=== PATIENT | male | born 1960 | race American Indian/Alaskan Native ===

== ENCOUNTER 2020-06-03 16:55 | Emergency (ER) | payer SELFPAY ==
[2020-06-03 17:04] VITALS: BP 161/99
--- NOTE | 2020-06-03 18:19 | Event Note ---
ED Screening Note Date of service: 06/03/20 Time: 18:15 ED Screening Note: Pt presents with complaints elevated BP reading and dizziness x today states dizziness has now resolved denies CP, SOB, vision changes, confusion, slurred speech, SWANSON, or numbness/tingling/weakness in his limbs Currently taking lisinopril per pt This initial assessment/diagnostic orders/clinical plan/treatment(s) is/are subject to change based on patients health status, clinical progression and re- assessment by fellow clinical providers in the ED. Further treatment and workup at subsequent clinical providers discretion. Patient/guardian urged not to elope from the ED as their condition may be serious if not clinically assessed and managed. Initial orders include: labs
[2020-06-03 18:35] LABS: Basophils % (Auto) 0.6 % (0.0-1.8); Eosinophils # (Auto) 0.1 K/mm3 (0.0-0.4); Eosinophils % (Auto) 1.4 % (0.0-4.3); Hemoglobin 13.4 gm/dl (11.8-15.2); Lymphocytes # (Auto) 1.8 K/mm3 (1.2-5.4); Lymphocytes % (Auto) 26.9 % (13.4-35.0); Mean Corpuscular HGB Conc 34 % (32-34); Mean Corpuscular Volume 98 fl (84-94); Monocytes # (Auto) 0.3 K/mm3 (0.0-0.8); Monocytes % (Auto) 4.7 % (0.0-7.3); Platelet Count 202 K/mm3 (140-440); Red Blood Count 4.09 M/mm3 (3.65-5.03)
[2020-06-03 18:56] LABS: Albumin 4.4 g/dL (3.9-5); BUN/Creatinine Ratio 10; Blood Urea Nitrogen 7 mg/dL (9-20); Hemolysis Index 8
[2020-06-03 19:02] LABS: Alanine Aminotransferase < 5 units/L (7-56)
== END 2020-06-03 21:26 | disposition left against medical advice (07) ==
LOC: ED 16:55
DX: R03.0 Elevated blood-pressure reading, without diagnosis of hypertension (principal); Z53.21 Procedure and treatment not carried out due to patient leaving prior to being seen by health care provider
CPT/HCPCS: 36415; 80053; 84484; 85025

== ENCOUNTER 2022-07-24 14:01 | Outpatient (CLI) | payer MEDICAID ==
--- NOTE | 2022-07-24 16:07 | XRay Report ---
Lumbar spine 5 views INDICATION: Low back pain FINDINGS: Alignment appears normal. Advanced discogenic degenerative change L5-S1 with endplate marie es and facet arthropathy. No subluxation is seen. Signer Name: Oscar Warner MD Signed: 07/24/2022 4:02 PM Workstation Name: [email or web address] [id number]
--- NOTE | 2022-07-24 17:03 | XRay Report ---
CHEST 2 VIEWS INDICATION / CLINICAL INFORMATION: R63.4 ABNORMAL WEIGHT LOSS. COMPARISON: None available. FINDINGS: SUPPORT DEVICES: None. HEART / MEDIASTINUM: No significant abnormality. LUNGS / PLEURA: No significant pulmonary or pleural abnormality. No pneumothorax. ADDITIONAL FINDINGS: No significant additional findings. IMPRESSION: 1. No acute findings. Signer Name: Homero Pinedo MD Signed: 07/24/2022 4:59 PM Workstation Name: [email or web address]
--- NOTE | 2022-07-24 17:12 | XRay Report ---
SACRUM AND COCCYX 3 VIEW(S) INDICATION / CLINICAL INFORMATION: PAIN COMPARISON: None available. FINDINGS: BONES / JOINT(S): No acute fracture or subluxation. No significant arthritis. SOFT TISSUES: No significant abnormality. ADDITIONAL FINDINGS: None. Signer Name: Homero Pinedo MD Signed: 07/24/2022 5:07 PM Workstation Name: [email or web address]
--- NOTE | 2022-07-24 17:13 | XRay Report ---
ABDOMEN 1 VIEW 07/24/2022 1:51 PM INDICATION / CLINICAL INFORMATION: WEIGHT LOSS R63.4/DYSPHAGIA. COMPARISON: None available. FINDINGS: TUBES / LINES: None. BOWEL GAS PATTERN: No significant abnormality. FREE AIR / EXTRALUMINAL GAS: None. ADDITIONAL FINDINGS: No significant additional findings. IMPRESSION: 1. No acute abnormality. Signer Name: Homero Pinedo MD Signed: 07/24/2022 5:08 PM Workstation Name: [email or web address]
== END 2022-07-24 14:02 | disposition home or self-care (01) ==
LOC: XRAY 14:01
PROVIDERS: ATTEND Family Medicine
DX: M47.817 Spondylosis without myelopathy or radiculopathy, lumbosacral region (principal); R63.4 Abnormal weight loss
CPT/HCPCS: 71046; 72110; 72220; 74018